=== PATIENT | female | born 1965 | race Caucasian/White ===

== ENCOUNTER 2019-10-18 04:19 | Emergency (ER) | payer MEDICAID, OTHER ==
[~2019-10-18] VITALS: Ht 170.2 cm; Wt 113.6 kg
[~2019-10-18 04:19] MED LIST: ATOR40TA71 PO; DILT120C19; LISI40TA4 PO; METH4TAB81 PO; ROPI1TAB2 PO; VENL-190; ZIPR60CA2 PO
--- NOTE | 2019-10-18 04:31 | NUR ---
made aware of elevated blood pressure at this time. Dr. Benitez to examine pt. soon.
[2019-10-18] MEDS: normal saline 1000ML IV soln IVB ONE ×2 (05:07→05:55)
[2019-10-18] MEDS: labetalol 20mg/4ml (5mg/ml) syringe IV ONE (05:09)
--- NOTE | 2019-10-18 05:11 | NUR ---
Patient laying on gurney, still reports feeling dizzy.
[2019-10-18 05:29] LABS: BASOPHILS # (AUTO) 0.1 X10'3 (0-0.2); BASOPHILS % (AUTO) 0.7 % (0-1); EOSINOPHILS # (AUTO) 0.1 X10'3 (0-0.9); EOSINOPHILS % (AUTO) 1.7 % (0-6); HEMATOCRIT 48.6 % (35.0-45.0); HEMOGLOBIN 16.6 g/dl (12.0-16.0); LYMPHOCYTES # (AUTO) 1.6 X10'3 (1.1-4.8); MEAN CORPUSCULAR HEMOGLOBIN 30.4 PG (27.0-31.0); MEAN CORPUSCULAR HGB CONC 34.2 g/dL (33.0-36.5); MEAN PLATELET VOLUME 7.7 FL (7.4-10.4); MONOCYTES # (AUTO) 0.9 X10'3 (0-0.9); MONOCYTES % (AUTO) 11.2 % (2-12); NEUTROPHILS % (AUTO) 65.4 % (42-75); PLATELET COUNT 446 X10'3 (140-440); RED BLOOD COUNT 5.46 X10'6 (4.20-5.60); RED CELL DISTRIBUTION WIDTH 13.3 % (11.5-14.5); WHITE BLOOD COUNT 7.6 X10'3 (4.5-11.0)
[2019-10-18 05:41] LABS: PARTIAL THROMBOPLASTIN TIME 27 SECONDS (22-32)
[2019-10-18] MEDS: hydrALAZINE 20mg/ml inj. IV ONE (05:42)
[2019-10-18 05:59] LABS: ALANINE AMINOTRANSFERASE 53 U/L (12-78); ALBUMIN 3.7 G/DL (3.4-5.0); ALKALINE PHOSPHATASE 119 IU/L (46-116); ANION GAP 10 (8-16); ASPARTATE AMINO TRANSFERASE 26 U/L (10-37); BILIRUBIN,TOTAL 0.5 MG/DL (0.1-1.0); BLOOD UREA NITROGEN 12 MG/DL (7-18); BUN/CREATININE RATIO 9.3 (6.6-38.0); CALCIUM 8.7 MG/DL (8.5-10.1); CHLORIDE 102 MMOL/L (99-107); CREATININE 1.29 MG/DL (0.40-0.90); GLUCOSE 125 MG/DL (70-104); POTASSIUM 3.3 MMOL/L (3.5-5.1); SODIUM 138 MMOL/L (135-145); TOTAL CARBON DIOXIDE 25.8 MMOL/L (24-32); TOTAL PROTEIN 7.5 G/DL (6.4-8.2); eGFR 43 ML/MIN
[2019-10-18 06:04] LABS: CLARITY,URINE SLIGHTLY CLOUDY (Clear); COLOR,URINE YELLOW (Yellow); GLUCOSE, URINE NEGATIVE (Neg); KETONES,URINE NEGATIVE (Neg); LEUKOCYTE ESTERASE ,URINE NEGATIVE (Neg); NITRITES, URINE NEGATIVE (Neg); OCCULT BLOOD,URINE NEGATIVE (Neg); PH,URINE 7.5 (4.8-8.0); PROTEIN,URINE NEGATIVE (Neg); UROBILINOGEN,URINE 0.2 E.U/dL (0.2-1.0)
[2019-10-18 06:19] LABS: UA COLLECTION TYPE NON-SPECIFIED
[2019-10-18 06:20] LABS: BACTERIA,URINE FEW /HPF (Neg); RBC,URINE NONE SEEN /HPF (0-2); SQUAMOUS EPITHELIAL CELL,UR MODERATE /LPF (FEW); WBC,URINE 0-4 /HPF (0-4)
[2019-10-18 06:21] LABS: MUCUS STRANDS NONE SEEN /LPF (Neg)
[2019-10-18 07:13] VITALS: BP 186/105
== END 2019-10-18 08:10 | disposition home or self-care (01) ==
LOC: ER 04:19
DX: R42 Dizziness and giddiness (principal); R53.1 Weakness; I10 Essential (primary) hypertension; E66.9 Obesity, unspecified; J44.9 Chronic obstructive pulmonary disease, unspecified; Z98.890 Other specified postprocedural states; Z88.8 Allergy status to other drugs, medicaments and biological substances; Z88.0 Allergy status to penicillin; Z88.5 Allergy status to narcotic agent; Z79.899 Other long term (current) drug therapy
CPT/HCPCS: 36415; 71045; 80053; 81001; 83605; 83735; 84145; 84484; 85025; 85610; 85730; 87040; 93005; 96361; 96374; 96375; 99284; J0360; J7030; J3490